=== PATIENT | male | born 1980 | race Caucasian/White ===

== ENCOUNTER 2017-07-02 09:48 | Emergency (ER) | payer OTHER ==
[~2017-07-02] VITALS: Ht 188 cm; Wt 102.1 kg
--- NOTE | 2017-07-02 11:00 | ED GI/GU/ABDOMINAL COMPLAINT ---
History of Present Illness General Chief Complaint: General Adult Stated Complaint: L GROIN PAIN Source: patient, old records Exam Limitations: no limitations Vital Signs & Intake/Output Vital Signs & Intake/Output Vital Signs Date Time Temp Pulse Resp B/P B/P Pulse O2 O2 Flow FiO2 Mean Ox Delivery Rate 07/02 1304 98.0 84 18 136/74 99 Room Air 07/02 1104 99 Room Air 07/02 0953 96.3 94 16 158/98 99 Room Air Allergies Coded Allergies: amoxicillin (Severe, SWELLING 07/02/17) Reconcile Medications Ciprofloxacin HCl (Cipro) 500 MG TABLET 1 TAB PO BID uti Triage Note: 36 TESTICULAR SWELLING X 2 DAYS. STATES HE WAS "STRAINING AT WORK BUT I DONT THINK I GAVE MYSELF A HERNIA". DENIES NOTING MASSES IN AREA OF PAIN. STATES "IT FEELS LIKE LAVA" WITH URINATION, +CLOUDY URINE PER PT. REPORTS NORMAL APPETITE/PO INTAKE. AFEBRILE. URINE SAMPLE REQUESTED Triage Nurses Notes Reviewed? yes Onset: Abrupt Duration: day(s): (3), constant, getting worse Timing: recent history Quality/Severity: severe, stabbing Severity Numbers: 10 Location: scrotal Radiation: no radiation Activities at Onset: none Prior Abdominal Problems: none No Modifying Factors: none Associated Symptoms: denies HPI: 36-year-old male presents emergency room for evaluation with a day history of left testicle pain and swelling. 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 He states that initially he had some soreness to his lower abdomen however the pain is now localized itself to the left testicle associated with dysuria and a sensation that he is urinating "fire ". He states his urine has been cloudy. Denies hematuria or penile discharge right-sided testicle pain. He is not taken anything for pain and is declining anything when offered. He has a history of genital herpes, no history of other sexual transmitted disease. He subjectively with his . No abdominal pain nausea vomiting. He denies any bruising or rashes to his skin (Minor Boss) Past History Travel History Traveled to [place] past 21 day No Medical History Any Pertinent Medical History? none Neurological: NONE EENT: NONE Cardiovascular: NONE Respiratory: NONE Gastrointestinal: NONE Hepatic: NONE Renal: NONE Musculoskeletal: NONE Psychiatric: NONE Endocrine: NONE Blood Disorders: NONE Cancer(s): NONE BAKERY ASSOCIATE/Reproductive: genital herpes Surgical History Surgical History: none Psychosocial History What is your primary language Bolivian Tobacco Use: Quit >30 days ago Family History Hx Contributory? No (Minor Boss) Review of Systems Review of Systems Constitutional: Reports: see HPI. Comments Review of systems: See HPI, All other systems negative. Constitutional, no chills no fever HEENT: no sore throat no congestion Cardiovascular: No chest pain , Skin: no rashes, no change in skin Respiratory: No dyspnea no cough GI: No nausea no vomiting, no diarrhea, : No dysuria No hematuria, no frequency mateus: no back pain Neurologic: , no headache Heme/endocrine: No bruising Immunology: No lymphadenopathy (Minor Boss) Physical Exam Physical Exam General Appearance: well developed/nourished, alert, awake Gastrointestinal: soft Comments: Well-developed well-nourished person in no acute distress HEENT: Normal EENT exam; PERRL, EOMI, HEAD is atraumatic. moist mucous membranes. Neck: Supple, no lymphadenopathy, normal range of motion Back: Nontender, no CVA tenderness. Full range of motion Cardiovascular: Regular rate and rhythms no murmur Respiratory: No respiratory distress. Patient speaking in full complete sentences. Breath sounds clear to auscultation bilaterally: NO W/R/R Abdomen: Soft, nontender nondistended, no appreciable organomegaly. Normal bowel sounds. No rebound/guarding, Male : Normal external genitalia, Left testicle is tender to palpation, positive phrens sign, normal cremaster reflex. No lesions/discharge. no perineum tenderness, No palp hernia Extremity: No edema, full range of motion of extremities Neuro: Alert oriented x3, motor sensory normal, There were no obvious focal neurologic abnormalities. Skin: No appreciable rash on exposed skin, skin is warm and dry. Psych: Mood and affect is normal, memory and judgment is normal. Core Measures ACS in differential dx? No Sepsis Present: No Sepsis Focused Exam Completed? No (Minor Boss) Progress Differential Diagnosis: epididymitis, orchitis, STD, testicular torsion, ureterolithiasis, UTI/pyelo, fourniere's Plan of Care: Orders Procedure Date/time Status Add-on Test (ER Only) 07/02 1126 Active CULTURE,URINE 07/02 1118 Active COMPREHENSIVE METABOLIC PANEL 07/02 1108 Complete CBC WITHOUT DIFFERENTIAL 07/02 1108 Complete CHLAMYDIA-GC DNA PROBE 07/02 1024 Active URINALYSIS 07/02 0958 Complete Laboratory Tests 07/02/17 1118: Anion Gap 13, Estimated GFR > 60, BUN/Creatinine Ratio 15.0, Glucose 90, Calcium 9.9, Total Bilirubin 0.9, AST 25, ALT 38, Alkaline Phosphatase 91, Total Protein 7.8, Albumin 4.6, Globulin 3.2, Albumin/Globulin Ratio 1.4, CBC w Diff NO MAN DIFF REQ, RBC 5.20, MCV 86.9, MCH 29.1, MCHC 33.5, RDW 13.4, MPV 9.2, Gran % 81.0 H, Lymphocytes % 11.4 L, Monocytes % 6.4, Eosinophils % 0.6, Basophils % 0.6, Absolute Granulocytes 11.7 H, Absolute Lymphocytes 1.6, Absolute Monocytes 0.9 H, Absolute Eosinophils 0.1, Absolute Basophils 0.1, Urinalysis LIGHT H, Urine Color YEL, Urine Clarity CLDY H, Urine pH 6.0, Ur Specific [place] 1.020, Urine Protein 100 H, Urine Ketones NEG, Urine Nitrite NEG, Urine Bilirubin NEG, Urine Urobilinogen 0.2, Ur Leukocyte Esterase LARGE H, Ur Microscopic SEDIMENT EXAMINED, Urine RBC 5-10 H, Urine WBC > 75 H, Urine Bacteria FEW H, Urine Mucus FEW, Urine Hemoglobin LARGE H, Urine Glucose NEG Microbiology 07/02 1118 URINE ROUT: Urine Culture - RECD 07/02 111 URINE ROUT: GC DNA Probe - RECD 07/02 111 URINE ROUT: Chlamydia DNA Probe (CHANDRAKANT) - RECD ua, labs and us ordered. case d/w dr goodrich. pt declining anything for pain when offered Patient declining anything for pain pending ultrasound 1255 I discussed with the patient at length his lab results and ultrasound findings is again declining anything when offered afebrile. I discussed with him need for close follow-up with his primary care physician and urology culture was sent return precautions were discussed at length Mandeep Pond he is declining anything else for pain advised Tylenol Motrin. Eric feels comfortable plan cleared for discharge Diagnostic Imaging: Viewed by Me: Ultrasound. Discussed w/RAD: Ultrasound. Radiology Impression: PATIENT: ERIC SHAY IV PRESENT AGE: 36 PATIENT ACCOUNT NO: [id number] : 81 LOCATION: [facility] ORDERING PHYSICIAN: Minor BURCH SERVICE DATE: 07/02/17 EXAM TYPE: US - US-TESTICULAR EXAMINATION: US SCROTUM CLINICAL INFORMATION: Left testicular pain, swelling, redness COMPARISON: None TECHNIQUE: A sonogram of the scrotum was performed assessing abel-scale appearance and color Doppler flow. Spectral analysis and Doppler interrogation was performed. FINDINGS: RIGHT: Right testicle measures 3.2 x 1.9 x 3.6 cm, volume 15.5 mL. Parenchymal echotexture is normal. No focal testicular parenchymal lesions are visualized. Normal symmetric intratesticular flow is visualized. Right epididymal head is normal in size. Small right hydrocele with low-level internal echoes. There is prominence of the right testicular venous vasculature, at most 2 mm. LEFT: Left testicle measures 4.5 x 2.0 x 3.7 cm, volume 23.6 mL. Parenchymal echotexture is normal. No focal testicular parenchymal lesions are visualized. Normal symmetric intratesticular flow is visualized. Left epididymal head is normal in size. Trace left hydrocele. There is prominence of the left testicular venous vasculature, up to 2-3 mm with Valsalva. IMPRESSION: Normal symmetric intratesticular flow identified bilaterally. Normal arterial and venous spectral Doppler waveforms are identified. No findings to suggest active testicular torsion at the time of the scan. There is prominence of the testicular venous vasculature bilaterally, left greater than right. Trace left, small right hydrocele. There are low level internal echoes within the right-sided hydrocele, possibly proteinaceous or hemorrhagic material. DICTATED BY: Eric Guzman MD DATE/TIME DICTATED:1213 TURNING LATHE TENDER:BRIDGER DATE/TIME TRANSCRIBED:07/02/171213 CONFIDENTIAL, DO NOT COPY WITHOUT APPROPRIATE AUTHORIZATION. <Electronically signed in Other Vendor System> SIGNED BY: Eric Guzman MD 07/02/17 1233 Initial ED EKG: none (Emmanuel BURCH,Minor) Departure Departure Disposition: HOME OR SELF CARE Condition: Stable Clinical Impression Primary Impression: Epididymitis Secondary Impressions: Hydrocele Referrals: Brooke MACEDO,Myl (PCP/Family) Wilfredo Poe MD Additional Instructions: Cipro as directed. wear high riding briefs for support, ice packs as needed. Follow up with urologist dr poe. Return if your symptoms worsen or you have any other concerns Departure Forms: Customer Survey General Discharge Information Prescriptions: Current Visit Scripts Ciprofloxacin HCl (Cipro) 1 TAB PO BID #14 TAB (Emmanuel BURCH,Minor) PA/TRUSS MAKER Co-Sign Statement Statement: ED Attending supervision documentation- [] I saw and evaluated the patient. I have also reviewed all the pertinent lab results and diagnostic results. I agree with the findings and the plan of care as documented in the PA's/TRUSS MAKER's documentation. [X] I have reviewed the ED Record and agree with the PA's/TRUSS MAKER's documentation. [] Additions or exceptions (if any) to the PAs/TRUSS MAKER's note and plan are summarized below: [] (Lauren MACEDO,Mendel Meza)
[2017-07-02 11:36] LABS: ABSOLUTE BASOPHIL COUNT 0.1 /CUMM (0.0-0.2); ABSOLUTE EOSINOPHIL COUNT 0.1 /CUMM (0.0-0.7); ABSOLUTE GRANULOCYTE CT 11.7 /CUMM (1.4-6.5); ABSOLUTE LYMPH COUNT 1.6 /CUMM (1.2-3.4); ABSOLUTE MONOCYTE COUNT 0.9 /CUMM (0.10-0.60); BASOPHIL % 0.6 % (0.0-2.0); EOSINOPHIL % 0.6 % (0-5); HEMATOCRIT 45.2 % (42-52); MEAN CORPUSCULAR HGB 29.1 PG (27.0-31.0); MEAN CORPUSCULAR HGB CONC 33.5 G/DL (33.0-37.0); MEAN CORPUSCULAR VOLUME 86.9 FL (80.0-94.0); MEAN PLATELET VOLUME 9.2 FL (7.4-10.4); PLATELET COUNT 248 /CUMM (130-400); RBC DISTRIBUTION WIDTH 13.4 % (11.5-14.5); WHITE BLOOD CELL COUNT 14.5 /CUMM (4.8-10.8)
--- NOTE | 2017-07-02 12:33 | ULTRASOUND REPORT ---
EXAMINATION: US SCROTUM CLINICAL INFORMATION: Left testicular pain, swelling, redness COMPARISON: None TECHNIQUE: A sonogram of the scrotum was performed assessing abel-scale appearance and color Doppler flow. Spectral analysis and Doppler interrogation was performed. FINDINGS: RIGHT: Right testicle measures 3.2 x 1.9 x 3.6 cm, volume 15.5 mL. Parenchymal echotexture is normal. No focal testicular parenchymal lesions are visualized. Normal symmetric intratesticular flow is visualized. Right epididymal head is normal in size. Small right hydrocele with low-level internal echoes. There is prominence of the right testicular venous vasculature, at most 2 mm. LEFT: Left testicle measures 4.5 x 2.0 x 3.7 cm, volume 23.6 mL. Parenchymal echotexture is normal. No focal testicular parenchymal lesions are visualized. Normal symmetric intratesticular flow is visualized. Left epididymal head is normal in size. Trace left hydrocele. There is prominence of the left testicular venous vasculature, up to 2-3 mm with Valsalva. IMPRESSION: Normal symmetric intratesticular flow identified bilaterally. Normal arterial and venous spectral Doppler waveforms are identified. No findings to suggest active testicular torsion at the time of the scan. There is prominence of the testicular venous vasculature bilaterally, left greater than right. Trace left, small right hydrocele. There are low level internal echoes within the right-sided hydrocele, possibly proteinaceous or hemorrhagic material.
[2017-07-02] MEDS ORDERED: CIPRO500 M1 PO (12:56)
[2017-07-02 13:04] VITALS: BP 136/74
== END 2017-07-02 13:04 ==
LOC: ERH 09:48
PROVIDERS: Physician Assistant Medical
DX: N45.1 Epididymitis (principal); N43.3 Hydrocele, unspecified
CPT/HCPCS: 81001; 87086; 87491; 87591